=== PATIENT | male | born 1985 | race Hispanic/Latino ===

== ENCOUNTER 2018-03-13 16:15 | Emergency (ER) | payer OTHER ==
[~2018-03-13] VITALS: Ht 172.7 cm; Wt 81.6 kg
[2018-03-13 16:22] VITALS: BP 128/82
[2018-03-13] MEDS ORDERED: AUGMENTIN 875-1 EACH PO (17:30)
[2018-03-13] MEDS ORDERED: IBUPROFEN800 M1 PO (17:31)
--- NOTE | 2018-03-13 17:32 | ED GENERAL ADULT ---
History of Present Illness General Chief Complaint: Sore Throat, Dental Pain Stated Complaint: PT HAS TOOTH ACHE ON THE LT SIDE Source: patient Exam Limitations: no limitations Vital Signs & Intake/Output Vital Signs & Intake/Output Vital Signs Date Time Temp Pulse Resp B/P B/P Pulse O2 O2 Flow FiO2 Mean Ox Delivery Rate 03/13 1622 98.8 52 18 128/82 98 Room Air Allergies Coded Allergies: No Known Allergies (03/13/18) Reconcile Medications Amoxicillin/Potassium Clav (Augmentin 875-125 Tablet) 875 MG-125 MG TABLET 1 TAB PO BID dental infection Ibuprofen 800 MG TABLET 1 TAB PO TID PRN pain Triage Note: 32M W LEFT LOWER MANDIBLE/TOOTH PAIN X2 DAYS. STATES HE BROKE A TOOTH LAST MONTH AND HAS AN EXPOSED NERVE. UNABLE TO GET IN WITH A DENTIST FAST ENOUGH. AFEBRILE. REPORTS THE PAIN IS SO BAD ITS CAUSING THROBBING IN HIS EARS AND FACE. Triage Nurses Notes Reviewed? yes Onset: Gradual Duration: day(s): Timing: constant HPI: 32-year-old male with no known medical history presenting with dental pain 2 days. Patient reports that his left upper molar has been cracked for several months, but that he is not currently followed by a dentist, and had no pain previously, therefore did not seek evaluation. Patient developed pain 2 days ago that radiates into his left cheek. Denies fevers or purulent drainage. Past History Travel History Traveled to [place] past 21 day No Medical History Any Pertinent Medical History? none Surgical History Surgical History: non-contributory Psychosocial History What is your primary language Thai Tobacco Use: Current Daily Use Daily Tobacco Use Amount/Type: => 5 Cigarettes daily Family History Hx Contributory? No Review of Systems Review of Systems Constitutional: Reports: no symptoms. EENTM: Reports: see HPI. Respiratory: Reports: no symptoms. Cardiovascular: Reports: no symptoms. GI: Reports: no symptoms. Genitourinary: Reports: no symptoms. Musculoskeletal: Reports: no symptoms. Skin: Reports: no symptoms. Neurological/Psychological: Reports: no symptoms. Hematologic/Endocrine: Reports: no symptoms. Immunologic/Allergic: Reports: no symptoms. All Other Systems: Reviewed and Negative Physical Exam Physical Exam General Appearance: well developed/nourished, no apparent distress, alert, awake , comfortable Head: atraumatic, normal appearance Eyes: Bilateral: normal appearance. Ears, Nose, Throat: on dental exam there is pain with tooth thrust of the last left upper tooth, the tooth appears cracked and broke and multiples places, no gingivitis or gingival dental abscess Neck: normal inspection, no anterior cervical edema Respiratory: normal breath sounds, lungs clear Cardiovascular: regular rate/rhythm Gastrointestinal: soft, non-tender Back: normal inspection Extremities: normal inspection Neurologic/Psych: awake, alert, oriented x 3, normal gait, normal mood/affect Skin: intact, normal color, warm/dry Core Measures ACS in differential dx? No CVA/TIA Diagnosis: No Sepsis Present: No Sepsis Focused Exam Completed? No Progress Differential Diagnoses I considered the following diagnoses in my evaluation of the patient: [Dental fracture versus apical abscess versus gingival abscess, no evidence of [place]ano's angina] Plan of Care: Patient has likely developed an apical abscess secondary to his prolonged broken tooth. Given Rx Augmentin and instructed to follow-up with a dentist for reevaluation. Given Rx ibuprofen for pain. Patient had initially agreed to do a dental block, 4% topical lidocaine was applied to the gum, and the patient then declined the dental block. Patient is cleared for discharge home, counseled on supportive care, and given strict return precautions. Initial ED EKG: none Departure Departure Disposition: HOME OR SELF CARE Condition: Stable Clinical Impression Primary Impression: Pain, dental Referrals: Patient Has No Primary Care Dr (PCP/Family) Additional Instructions: Take Augmentin as prescribed. Use ibuprofen as prescribed. Follow-up with a dentist for reevaluation. Return to the emergency department for any new or worsening symptoms per Departure Forms: Customer Survey General Discharge Information Prescriptions: Current Visit Scripts Amoxicillin/Potassium Clav (Augmentin 875-125 Tablet) 1 TAB PO BID #20 TAB Ibuprofen 1 TAB PO TID PRN pain #60 TAB Critical Care Note Critical Care Note Critical Care Time: non-applicable
== END 2018-03-13 17:35 ==
LOC: ERH 16:15
DX: K08.89 Other specified disorders of teeth and supporting structures (principal)